=== PATIENT | female | born 1950 | race Caucasian/White ===

== ENCOUNTER → 2017-04-08 | Outpatient (CLI) | payer MEDICARE, BC ==
--- NOTE | 2017-04-11 15:49 | MM ---
Reason for exam: follow-up at short interval from prior study. Last mammogram was performed 9 months ago. History: Patient is postmenopausal and has history of breast cancer at age 41. Family history of breast cancer in maternal grandmother. Lumpectomy of the left breast, 1991. Excisional biopsy of the left breast. Chemotherapy. Radiation therapy of the left breast. Physical Findings: Nurse did not find any significant physical abnormalities on exam. MG 3D Diag Mammo W/Cad LT LM, CC, and MLO view(s) were taken of the left breast. Prior study comparison: July 16, 2016, bilateral MG screening mammo w CAD. July 13, 2015, bilateral MG screening mammo w CAD. June 07, 2014, bilateral MG diagnostic mammo w CAD MANSI. The breast tissue is heterogeneously dense. This may lower the sensitivity of mammography. Finding: Architectural distortion in the lower inner quadrant of the left breast. 8mm oval lesion upper outer quadrant of the left breast, stable from most recent year without ultrasound correlation. These results were verbally communicated with the patient and result sheet given to the patient on 04/08/17. ASSESSMENT: Incomplete: need additional imaging evaluation, BI-RAD 0 RECOMMENDATION: Ultrasound of the left breast.
--- NOTE | 2017-04-11 15:52 | USB ---
Reason for exam: additional evaluation requested from abnormal screening. History: Patient is postmenopausal and has history of breast cancer at age 41. Family history of breast cancer in maternal grandmother. Lumpectomy of the left breast, 1991. Excisional biopsy of the left breast. Chemotherapy. Radiation therapy of the left breast. US Breast Limited LT Left breast ultrasound demonstrates a 4 x 2 x 3mm oval, too small to characterize lesion at 2 o'clock. These results were verbally communicated with the patient and result sheet given to the patient on 04/08/17. ASSESSMENT: Benign, BI-RAD 2 RECOMMENDATION: Follow-up diagnostic mammogram of both breasts in 6 months. Back on schedule.
== END | disposition home or self-care (01) ==
LOC: RADMAMWWP 08:05
PROVIDERS: ATTEND Obstetrics & Gynecology
DX: Z78.0 Asymptomatic menopausal state (principal); Z85.3 Personal history of malignant neoplasm of breast; N63 Unspecified lump in breast
CPT/HCPCS: 76642; G0206; G0279

== ENCOUNTER → 2017-06-19 | Outpatient (CLI) | payer MEDICARE, BC | END | disposition home or self-care (01) | LOC: LABWHC1 11:07 | PROVIDERS: ATTEND Psychiatry & Neurology Neurology | DX: G62.9 Polyneuropathy, unspecified (principal); Z79.899 Other long term (current) drug therapy | CPT/HCPCS: 36415; 82306; 82607 ==

== ENCOUNTER → 2018-04-08 | Outpatient (CLI) | payer MEDICARE, BC ==
[2018-04-08 08:04] VITALS: BP 117/56; PULSE 87; TEMP 97.3; BMI 27.3
--- NOTE | 2018-04-08 08:50 | P.HPOB ---
History of Present Illness H&P Date: 04/08/18 Chief Complaint: The patient is here for her routine gynecologic exam and mammogram. This is a 67-year-old with an LMP of 1991. Patient is here to establish with this office. Is been about one year since her last pelvic exam. She believes she was not due for a Pap smear at that time. She is without gynecologic complaints and denies any postmenopausal bleeding. Review of Systems Weight has been stable. She denies respiratory, cardiac and G.I. problems. She denies maltreatment or problems with falling. : she denies any significant problems with urinary leakage. Past Medical History Past Medical History: Cancer (Left breast in 1991 status post lumpectomy, radiation and chemotherapy.), Deep Vein Thrombosis (DVT) (Left leg times two) Additional Past Medical History / Comment(s): TRIGEMINAL NEURALGIA (R)SIDE, FACTOR V LEYDEN, NEUROPATHY. Osteopenia. Past [employer] history: she has no history of STDs. History of Any Multi-Drug Resistant Organisms: None Reported Past Surgical History: Breast Surgery (Left breast lumpectomy) Additional Past Surgical History / Comment(s): Colonoscopy 2008. Past Psychological History: No Psychological Hx Reported Smoking Status: Current every day smoker (Half pack per day) Past Alcohol Use History: None Reported Past Drug Use History: None Reported Additional History: She has been since 1971 and is retired. - Past Family History Mother Family Medical History: Cancer (Pancreas) Additional Family Medical History / Comment(s): Maternal grandmother had breast cancer. Father Family Medical History: Dementia Medications and Allergies Home Medications Medication Instructions Recorded Confirmed Type Amitriptyline HCl [Elavil] mg PO DAILY 04/08/18 History Atorvastatin [Lipitor] mg PO HS 04/08/18 04/08/18 History Cholecalciferol (Vitamin D3) 2,000 unit PO 04/08/18 History [Vitamin D3] Gabapentin [Neurontin] mg PO TID 04/08/18 History Verapamil HCl [Calan] mg PO DAILY 04/08/18 History Warfarin [Coumadin] mg PO DIRECTED 04/08/18 History Allergies Allergy/AdvReac Type Severity Reaction Status Date / Time No Known Allergies Allergy Unverified 04/08/18 07:57 Exam Vital Signs Temp Pulse BP 04/08/18 07:57 97.3 F L 87 117/56 Intake and Output 04/07/18 04/08/18 04/08/18 22:59 06:59 14:59 Other: Weight 72.121 kg Height 5'4", BMI 27.3. This is a well-developed well-nourished white female who is alert and oriented times 3 in no acute distress. HEENT: Within normal limits. NECK: Supple without mass or thyromegaly. CHEST AND LUNGS: Clear to auscultation. HEART: Regular rate and rhythm. BREASTS: Are without mass or discharge. There is a dimpled area at the 8 o' clock position of the left breast consistent with her previous lumpectomy. AXILLARY EXAM: Negative for adenopathy. BACK: Negative for CVA tenderness. ABDOMEN: Soft, nontender, without palpable masses. PELVIC EXAM: Normal external genitalia with moderate atrophy. Cervix and vagina appear normal with mild to moderate atrophy. There is no unusual discharge. There is no evidence of prolapse. The uterus is midposition, nongravid size and nontender. There are no palpable adnexal masses or tenderness. RECTAL EXAM: rectovaginal exam is negative for mass or tenderness and is negative for occult blood. EXTREMITIES: Nontender. IMPRESSION: 1. 67-year-old menopausal female with normal gynecologic exam. 2. History of left breast cancer status post lumpectomy, radiation and chemotherapy in 1991. No evidence of recurrence. 3. History of osteopenia. She states she has some side effects from medications that she once took for this. She is no longer on medication for this. PLAN: 1. Pap smear was performed. 2. Breast awareness was discussed. 3. Diagnostic mammogram will be done today. 4. Osteoporosis prevention was discussed. She will sign a records released to obtain the last bone density test from [facility] [employer]. 5. She does get flu shots in the fall. 6. She will return in one year.
--- NOTE | 2018-04-09 14:58 | MM ---
Reason for exam: additional evaluation requested from prior study. Last mammogram was performed 1 year ago. History: Patient is postmenopausal and has history of breast cancer at age 41. Family history of breast cancer in maternal grandmother. Lumpectomy of the left breast, 1991. Excisional biopsy of the left breast. Chemotherapy. Radiation therapy of the left breast. Physical Findings: Dr. Davila did not find any significant physical abnormalities on exam. MG 3D Diag Mammo W/Cad MANSI Bilateral CC, MLO, XCCL, and LM view(s) were taken. Spot compression MLO view(s) were taken of the right breast. Prior study comparison: April 08, 2017, left breast MG 3d diag mammo w/cad LT. July 16, 2016, bilateral MG screening mammo w CAD. The breast tissue is heterogeneously dense. This may lower the sensitivity of mammography. There is chronic nodularity in the left breast. Far posterior asymmetric density on the right just above the retroareolar plane. This persists on additional views. Post surgical changes left breast. No significant change. These results were verbally communicated with the patient and result sheet given to the patient on 04/08/18. ASSESSMENT: Incomplete: need additional imaging evaluation, BI-RAD 0 RECOMMENDATION: Ultrasound of the right breast.
--- NOTE | 2018-04-09 15:01 | USB ---
Reason for exam: additional evaluation requested from abnormal screening. History: Patient is postmenopausal and has history of breast cancer at age 41. Family history of breast cancer in maternal grandmother. Lumpectomy of the left breast, 1991. Excisional biopsy of the left breast. Chemotherapy. Radiation therapy of the left breast. US Breast RT Right complete breast ultrasound includes all four quadrants, the retroareolar region and axilla. Finding demonstrates a 3 x 2 x 5mm hypoechoic lesion at 9 o'clock likely corresponds to the mammographic finding. Biopsy recommended. Ensure that clip placement corresponds to the mammographic finding. Normal axillary node. No other solid or cystic lesions. These results were verbally communicated with the patient and result sheet given to the patient on 04/08/18. ASSESSMENT: Suspicious, BI-RAD 4 RECOMMENDATION: Surgical consultation and ultrasound core biopsy of the right breast. Called Dr. Davila with mammographic findings and has scheduled an appointment for the patient for 04/14/18 at 1:[address] Jacome. PRELIMINARY REPORT CALLED AND FAXED TO DR. JACOME ON 04/09/18.
== END | disposition home or self-care (01) ==
LOC: WWCWWP 07:35
PROVIDERS: ATTEND Obstetrics & Gynecology
DX: R92.8 Other abnormal and inconclusive findings on diagnostic imaging of breast (principal); Z85.3 Personal history of malignant neoplasm of breast; Z90.12 Acquired absence of left breast and nipple
CPT/HCPCS: 77066; 76641; G0279; 77062

== ENCOUNTER → 2018-04-21 | Day surgery (SDC) | payer MEDICARE, BC ==
[2018-04-21 07:31] VITALS: RESP 16; BMI 27.4
[2018-04-21 07:36] LABS: Partial Thromboplastin Time 24.2 sec (22.0-30.0); Prothrombin Time 9.6 sec (9.0-12.0)
--- NOTE | 2018-04-21 09:07 | USB ---
EXAMINATION TYPE: US biopsy breast VAD RT, MG diagnostic mammo RT wo CAD DATE OF EXAM: 04/21/2018 CLINICAL HISTORY: R92.8 ABN Mammogram. TECHNIQUE: Ultrasound guided core biopsy of right breast. COMPARISON: 04/08/2018 FINDINGS: The procedure of ultrasound guided core biopsy was explained to the patient. Benefits, alt ernatives, and risks were discussed. An informed consent was then obtained. Preprocedural timeout w as performed. The patient was placed in supine positioning for imaging and for the procedure. The overlying skin w as prepped and draped in usual sterile fashion. 10 cc of lidocaine buffered with bicarbonate was used as anesthetic into the skin and subcutaneous tissue within the right breast. 10 cc of lidocaine with epinephrine was utilized to anesthetize the subcutaneous tissues directly surrounding the 3 x 2 x 5 mm mass at the 9:00 position. Under ultrasound guidance, a 12-gauge vacuum assisted biopsy gun device was used to obtain 5 core samples. Following this, wing shaped biopsy marker was left in lesion. Postprocedural mammogram dem onstrates appropriate clip placement without migration. This does correspond to the focal asymmetry s een on the prior mammogram dated 04/08/2018. The patient tolerated the procedure well without any immediate complication. The patient was kept in the radiology department for short stay after the procedure and then discharged home in stable condi tion. IMPRESSION: Successful, uncomplicated ultrasound guided core biopsy of a 3 x 2 x 5 mm mass within the right breast at the 9:00 position that does correspond to the mammographic focal asymmetry on postpr ocedural mammogram, full pathology results to follow.
[2018-04-21 09:25] VITALS: PULSE 85; TEMP 98
[2018-04-21 09:27] VITALS: BP 99/56
== END ==
LOC: RADUSWWP 06:58
PROVIDERS: ATTEND Surgery
DX: N60.91 Unspecified benign mammary dysplasia of right breast (principal); N60.31 Fibrosclerosis of right breast; N60.81 Other benign mammary dysplasias of right breast
CPT/HCPCS: 85610; 85730; 77065; 19083; 36415; A4648; J2001; 88305; 88341; 88342

== ENCOUNTER → 2018-06-17 | Outpatient (CLI) | payer MEDICARE, BC ==
--- NOTE | 2018-06-17 09:04 | BD ---
EXAMINATION TYPE: Axial Bone Density DATE OF EXAM: 06/17/2018 CLINICAL HISTORY: Postmenopausal female with known osteoporosis. Height: 63.5 Weight: 159 Comparison: Prior DEXA bone scan report March 17, 2002. FRAX RISK QUESTIONS: Alcohol (3 or more units per day): no Family History (Parent hip fracture): no Glucocorticoids (More than 3mos): no (Ex: prednisone, prednisolone, methylprednisolone, dexamethasone, and hydrocortisone). History of Fracture in Adulthood: no Secondary Osteoporosis: 1. Type 1 Diabetes: no 2. Hyperthyroidism: no 3. Menopause before 45: yes 4. Malnutrition: no 5. Chronic liver disease: no Rheumatoid Arthritis: unsure Current Tobacco Use: yes RISK FACTORS HISTORY OF: Family History of Osteoporosis: not to patient's knowledge Active: yes Diet low in dairy products/other sources of calcium: at least one serving a day Postmenopausal woman: yes Take estrogen and/or progesterone medications: no Lost more than 2 inches in height since high school: no Frequent falls: no Poor Health: no Hyperparathyroidism: no Adrenal Insufficiency: no MEDICATIONS: Prednisone or other steroids: no Thyroid Medications: no Osteoporosis Medications:not now Which medication: unsure How Long: briefly Additional Medications: Vitamin D3 Additional History: Breast CA /radiation & chemo when about age 41 or less EXAM MEASUREMENTS: Bone mineral densitometry was performed using the [employer] System. Bone mineral density as measured about the Lumbar spine is: ----- L1-L4(G/cm2): 0.769 T Score Values are as follows: ----- L2: -3.9 ----- L3: -3.4 ----- L4: -3.3 ----- L1-L4: -3.4 Bone mineral density has: Decreased -25.2% since study of: 03/17/2002 (possibly more recent study was done at physician office) Bone mineral density about the R hip (g/cm2): 0.800 Bone mineral density about the L hip (g/cm2): 0.793 T Score values are as follows: -----R Neck: -1.7 -----L Neck: -1.8 -----R Total: -1.3 -----L Total: -1.6 Bone mineral density has: Decreased -7.8% since study of: 03/17/2002 (possibly more recent study was done at physician office) IMPRESSION: Osteoporosis (T Score less than -2.5) identified overall in the low back. Bone density diminished fro m 2001 report. There is increased fracture risk and therapy is usually indicated based on age if not currently on. Re-Screen 1-2 years. NOTE: T-SCORE=SD OF THE YOUNG ADULT MEAN.
--- NOTE | 2018-06-18 10:05 | P.PN ---
Progress Note - Text Progress Note Date: 06/18/18 OUTPATIENT FOLLOW-UP NOTE TEST(S)/RESULTS: bone density testing done on 06/17/2018 shows osteoporosis with a T score of -3.4 from the lumbar spine measurements. METHOD OF NOTIFICATION: she was notified by phone. PATIENT COMMENTS: the patient understands the results and is open to the idea of using medication to prevent bone fractures. DIAGNOSIS: osteoporosis DISCUSSION: we had a long discussion regarding medications including Fosamax. We discussed possible side effects including increased risk for esophageal ulcers and osteonecrosis of the jaw. PLAN: information on osteoporosis and Fosamax will be sent to the patient. After reviewing the information, she will call if questions or if she would like to be started on the medication. If she wants to start the medication, we will check serum creatinine and serum calcium and if normal she will be started on this medication.
== END | disposition home or self-care (01) ==
LOC: RADBDWWP 07:37
PROVIDERS: ATTEND Obstetrics & Gynecology
DX: M81.0 Age-related osteoporosis without current pathological fracture (principal)
CPT/HCPCS: 77080

== ENCOUNTER → 2018-07-10 | Outpatient (CLI) | payer MEDICARE, BC | END | disposition home or self-care (01) | LOC: LABWHC1 14:11 | PROVIDERS: ATTEND Psychiatry & Neurology Neurology | DX: G50.0 Trigeminal neuralgia (principal) | CPT/HCPCS: 36415; 82306 ==

== ENCOUNTER → 2019-01-13 | Outpatient (CLI) | payer MEDICARE, BC ==
[2019-01-13 10:38] LABS: Anisocytosis Moderate; Basophils % (A) 0 %; Eosinophils % (A) 1 %; HCT 30.6 % (34.0-46.0); HGB 9.8 gm/dL (11.4-16.0); Hypochromasia Slight; Lymphocytes # (A) 0.7 k/uL (1.0-4.8); Lymphocytes % (A) 15 %; MCH 23.6 pg (25.0-35.0); MCV 73.8 fL (80.0-100.0); Mean Platelet Volume 7.4; Microcytosis Marked; Monocytes # (A) 0.2 k/uL (0-1.0); Monocytes % (A) 4 %; Neutrophils # (A) 3.7 k/uL (1.3-7.7); Neutrophils % (A) 77 %; Platelet Count 119 k/uL (150-450); RBC 4.15 m/uL (3.80-5.40); RDW 21.7 % (11.5-15.5); WBC 4.7 k/uL (3.8-10.6)
== END | disposition home or self-care (01) ==
LOC: LABWHC1 09:50
PROVIDERS: ATTEND Internal Medicine Hematology
DX: C34.91 Malignant neoplasm of unspecified part of right bronchus or lung (principal)
CPT/HCPCS: 36415; 85025

== ENCOUNTER → 2019-02-03 | Outpatient (CLI) | payer MEDICARE, BC ==
[2019-02-03 10:33] LABS: Anisocytosis Marked; Basophils % (A) 0 %; Eosinophils # (A) 0.1 k/uL (0-0.7); Eosinophils % (A) 1 %; HCT 28.1 % (34.0-46.0); HGB 9.1 gm/dL (11.4-16.0); Hypochromasia Moderate; Lymphocytes # (A) 0.5 k/uL (1.0-4.8); Lymphocytes % (A) 13 %; MCH 24.6 pg (25.0-35.0); MCHC 32.2 g/dL (31.0-37.0); MCV 76.3 fL (80.0-100.0); Mean Platelet Volume 6.9; Microcytosis Marked; Monocytes # (A) 0.2 k/uL (0-1.0); Monocytes % (A) 6 %; Neutrophils % (A) 76 %; Platelet Count 129 k/uL (150-450); RBC 3.68 m/uL (3.80-5.40); RDW 24.7 % (11.5-15.5); WBC 3.9 k/uL (3.8-10.6)
== END | disposition home or self-care (01) ==
LOC: LABWHC1 08:59
PROVIDERS: ATTEND Nurse Practitioner
DX: C34.91 Malignant neoplasm of unspecified part of right bronchus or lung (principal)
CPT/HCPCS: 36415; 85025

== ENCOUNTER → 2019-02-24 | Outpatient (CLI) | payer MEDICARE, BC ==
[2019-02-24 09:55] LABS: Anisocytosis Marked; HCT 26.7 % (34.0-46.0); HGB 8.5 gm/dL (11.4-16.0); Hypochromasia Slight; MCH 25.2 pg (25.0-35.0); MCHC 31.7 g/dL (31.0-37.0); MCV 79.4 fL (80.0-100.0); Mean Platelet Volume 7.3; Microcytosis Moderate; Platelet Count 149 k/uL (150-450); RBC 3.36 m/uL (3.80-5.40); RDW 24.7 % (11.5-15.5); WBC 4.3 k/uL (3.8-10.6)
[2019-02-24 10:58] LABS: Lymphocytes # (M) 0.73 k/uL (1.0-4.8); Monocytes # (M) 0.26 k/uL (0-1.0); Neutrophils # (M) 3.31 k/uL (1.3-7.7); Neutrophils % (M) 77 %; Nucleated Red Blood Cells 0 /100 WBC (0-0); Total Cells Counted 100
== END | disposition home or self-care (01) ==
LOC: LABWHC1 08:39
PROVIDERS: ATTEND Nurse Practitioner
DX: C34.91 Malignant neoplasm of unspecified part of right bronchus or lung (principal)
CPT/HCPCS: 36415; 85025